=== PATIENT | female | born 1995 | race Caucasian/White ===

== ENCOUNTER 2017-04-17 23:02 | Emergency (ER) | payer OTHER ==
[~2017-04-17] VITALS: Ht 160 cm; Wt 88.0 kg
[2017-04-18] MEDS ORDERED: FAMOTIDINE 20MG TABLET PO STA (00:19)
[2017-04-18] MEDS ORDERED: DIPHENHYDRAMINE 50MG/ML VIAL IM STA (00:19)
[2017-04-18 00:30] VITALS: BP 110/68
[2017-04-18] MEDS ORDERED: DEXAMETHASONE 10MG/ML 1ML VIAL IM ONE (00:30)
== END 2017-04-18 01:15 | disposition home or self-care (01) ==
LOC: ER 23:02
DX: R21 Rash and other nonspecific skin eruption (principal)
CPT/HCPCS: 96372; 99284; J1100; J1200